=== PATIENT | male | born 1960 | race African-American/Black ===

== ENCOUNTER 2025-01-09 10:28 | Inpatient (IN) | payer OTHER ==
[~2025-01-09] VITALS: Ht 172.7 cm; Wt 63.0 kg
[2025-01-09] VITALS (9 sets, daily range): BP systolic 126–162; BP diastolic 86–118; PULSE 90–106; RESP 17–24; TEMP 36.6–37.1408; O2SAT 97–100
[~2025-01-09 10:28] MED LIST: ALBU18HF2 IH; ASPI-1406 PO; FURO10VI3 PO; LISI-186 PO; POTA-204 PO
[2025-01-09 11:29] LABS: BASOPHILS % 0.4 % (0.0-2.0); EOSINOPHILS % 0.1 % (0.0-5.0); HEMATOCRIT. 40.1 % (42.0-52.0); HEMOGLOBIN. 13.2 g/dL (14.0-18.0); LYMPHOCYTES % 24.1 % (20.0-50.0); MEAN PLATELET VOLUME 7.1 fl (7.4-10.4); MONOCYTES % 8.5 % (2.0-8.0); NEUTROPHILS % 66.9 % (40.0-76.0); PLATELET 362 x1000/uL (130-400); RED BLOOD CELL COUNT 4.07 mill/uL (4.7-6.1); RED CELL DISTRIBUTION WIDTH 13.3 % (11.6-14.6)
[2025-01-09] MEDS: IPRATROPIUM BROMIDE (0.02%) 0.5MG/2.5ML NEB HHN SCH (11:34)
[2025-01-09] MEDS: ALBUTEROL (0.083%) 2.5MG/3ML NEB HHN SCH (11:35)
[2025-01-09 11:48] LABS: CREATININE 1.4 mg/dL (0.6-1.3); UREA NITROGEN BLOOD 21 mg/dL (9-23)
[2025-01-09 11:49] LABS: ASPARTATE AMINOTRANSFERASE 27 IU/L (<34)
[2025-01-09 11:50] LABS: BILIRUBIN DIRECT 0.2 mg/dL (<=3.0); BILIRUBIN TOTAL 0.6 mg/dL (0.1-1.0); PROTEIN TOTAL 7.7 g/dL (6.0-8.3)
[2025-01-09 11:52] LABS: TROPONIN I HIGH SENSITIVITY 93 ng/L (3.0-53)
[2025-01-09] MEDS ORDERED: ACETAMINOPHEN 650MG SUPP PR PRN (15:15)
[2025-01-09] MEDS: FUROSEMIDE 100MG/10ML VIAL IVP SCH (15:23)
[2025-01-09] MEDS: HYDRALAZINE 20MG/ML VIAL IV PRN (15:24)
[2025-01-09] MEDS: IPRATROPIUM/ALBUTEROL 0.5-3(2.5)MG/3ML NEB HHN PRN (16:46)
[2025-01-09] MEDS: ENOXAPARIN 40MG/0.4ML SYR SUBCUT SCH (17:28)
[2025-01-10] VITALS: BP 173/98; PULSE 85; RESP 18; TEMP 36.3; O2SAT 100
[2025-01-10] MEDS: ACETAMINOPHEN 650MG/20.3ML UDC GT PRN (01:11)
[2025-01-10 04:00] VITALS: BP 140/89; PULSE 98; RESP 20; TEMP 36.4; O2SAT 100
[2025-01-10 07:27] LABS: BASOPHILS % 0.5 % (0.0-2.0); EOSINOPHILS % 0.5 % (0.0-5.0); HEMATOCRIT. 42.7 % (42.0-52.0); HEMOGLOBIN. 14.2 g/dL (14.0-18.0); LYMPHOCYTES % 23.4 % (20.0-50.0); MEAN PLATELET VOLUME 7.2 fl (7.4-10.4); MONOCYTES % 7.5 % (2.0-8.0); NEUTROPHILS % 68.1 % (40.0-76.0); PLATELET 369 x1000/uL (130-400); RED BLOOD CELL COUNT 4.40 mill/uL (4.7-6.1); RED CELL DISTRIBUTION WIDTH 13.5 % (11.6-14.6)
[2025-01-10 07:48] LABS: CREATININE 1.5 mg/dL (0.6-1.3); UREA NITROGEN BLOOD 20.0 mg/dL (9-23)
[2025-01-10 07:53] LABS: T4 FREE 1.38 ng/dL (0.89-1.76)
[2025-01-10 08:00] VITALS: BP 124/73; PULSE 93; RESP 17; TEMP 36.6; O2SAT 99
[2025-01-10] MEDS: ASPIRIN 81MG EC TABLET PO SCH (08:29)
[2025-01-10] MEDS: LISINOPRIL 5MG TABLET PO SCH (08:33)
[2025-01-10] MEDS: ACETAMINOPHEN 325MG TABLET PO PRN (09:30)
[2025-01-10 12:00] VITALS: BP 98/74; PULSE 98; RESP 18; TEMP 36.6; O2SAT 100
[2025-01-10] MEDS ORDERED: ALBU18HF2 IH (12:09)
[2025-01-10] MEDS ORDERED: ASPI-1406 PO (12:09)
[2025-01-10] MEDS ORDERED: POTA-204 PO (12:09)
[2025-01-10] MEDS ORDERED: LISI-186 PO (12:09)
[2025-01-10] MEDS ORDERED: FURO10VI3 PO (12:09)
[2025-01-10 14:10] VITALS: BP 91/74; PULSE 95; RESP 17; TEMP 98
== END 2025-01-10 14:54 | disposition home or self-care (01) | DRG 194 ==
LOC: ER 10:28 → 5WST 13:22 → EDBEDREQ 13:25 → EDBEDREQTM 13:25 → ENRESERV 14:31
PROVIDERS: ADMIT Student in an Organized Health Care Education/Training Program; ATTEND Student in an Organized Health Care Education/Training Program
DX: I11.0 Hypertensive heart disease with heart failure (principal); J44.1 Chronic obstructive pulmonary disease with (acute) exacerbation; I50.33 Acute on chronic diastolic (congestive) heart failure; F17.200 Nicotine dependence, unspecified, uncomplicated; I42.8 Other cardiomyopathies; Z71.6 Tobacco abuse counseling; I25.2 Old myocardial infarction; Z79.82 Long term (current) use of aspirin; Z79.899 Other long term (current) drug therapy; Z91.148 Patient's other noncompliance with medication regimen for other reason
CPT/HCPCS: 36415; 71045; 80048; 80076; 82040; 83880; 84439; 84443; 84484; 85025; 93005; 94070; 94640; 94664; 98960; 99285; J0360; J1650; J1938